=== PATIENT | male | born 1945 | race Caucasian/White ===

== ENCOUNTER 2016-09-29 10:29 | Day surgery (SDC) | payer MEDICARE, OTHER ==
[~2016-09-29] VITALS: Ht 165.1 cm; Wt 79.8 kg
[2016-09-29] VITALS (18 sets, daily range): BP systolic 102–152; BP diastolic 57–91; PULSE 50–58; RESP 10–22; TEMP 97.1–98; O2SAT 90–100; Ht 165.1 cm; Wt 79.8 kg
[~2016-09-29 10:29] MED LIST: ASPI-611 PO; CEFAZOLIN 1 GRAM INJECTION IV ONE; FINA5TAB42 PO; LEVO25TA49 PO; LIDOCAINE 1% (10mg/ml) 2ml SDV INJ ONE; LORA-358 PO; LOSA50TA52 PO; LR 1,000 ML IV SCH; MULT-806 PO; RANI150T7 PO; TAMS0.4C47 PO; TRAZ150T80 PO
--- OUTSIDE RECORDS SUMMARY | 2016-09-29 10:35 | XMS REPORT | Continuity of Care Document ---
Author Author [facility] Organization [facility] Address Unknown Phone Unavailable Allergies Active Description Code Type Severity Reaction Onset Reported/Identified Relationship to Patient Clinical Status Yes No Known Medication Allergies NKMA N/A N/A 03/28/2014 Medications Problems Procedures Results Test Result Range CBC With Platelet and Differential - 08/26/16 08:40 Absolute Basophils 0.05 10*3/uL 0.00- 0.20 Absolute Eosinophils 0.10 10*3/uL 0.00- 0.50 Absolute Lymphocytes 1.86 10*3/uL 0.80- 3.30 Absolute Monocytes 0.65 10*3/uL 0.30- 1.00 Absolute Neutrophils 3.02 10*3/uL 1.90- 7.00 Basophils 1 % 0-2 Eosinophils 2 % 0-4 HCT 46.4 % 42.0-52.0 HGB 15.6 g/dL 14.0-18.0 Immature Granulocytes 0.4 % 0.0-1.0 Lymphocytes 33 % 20-46 MCH 30.9 pg 27.0-32.0 MCHC 33.6 g/dL 32.0-36.0 MCV 91.9 fL 82.0-99.0 Monocytes 11 % 4-11 MPV 10.2 fL 8.8-14.8 Neutrophils 53 % 51-75 Platelet Count 150 K/uL 150-400 RBC 5.05 10*6/uL 4.60-6.20 RDW 12.7 % 11.5-14.5 WBC 5.7 K/uL 4.8-10.8 Comprehensive Metabolic Panel (CMP) - 08/26/16 08:40 Albumin 4.2 g/dL 3.4-4.8 Alkaline Phosphatase 76 U/L 40-150 ALT (SGPT) 22 U/L 0-55 Anion Gap 5 NA 3-20 AST (SGOT) 25 U/L 5-34 Bilirubin Total 0.8 mg/dL 0.2-1.2 BUN 12 mg/dL 8-26 Calcium 9.7 mg/dL 8.4-10.2 Chloride 107 mEq/L 99-111 CO2 29 mEq/L 23-31 Creatinine 1.17 mg/dL 0.72-1.25 Globulin 2.8 g/dL 1.8-4.0 Glucose 74 mg/dL 70-99 Potassium 4.9 mEq/L 3.5-5.2 Protein 7.0 g/dL 6.0-7.6 Sodium 141 mEq/L 135-144 Lipid Panel - 08/26/16 08:40 Cardiac Risk 3.4 0.0-5.7 Cholesterol 187 mg/dL 0-199 HDL Cholesterol 55 mg/dL 40-84 LDL Cholesterol 104 mg/dL 0-130 Triglycerides 140 mg/dL 0-149 VLDL Cholesterol 28 mg/dL 0-28 eGFR - 08/26/16 08:40 eGFR >60 mL/min >60 TSH with Reflex Free T4 - 08/26/16 08:40 TSH with Reflex Free T4 3.09 uIU/mL 0.35- 4.94 Urinalysis with reflex microscopic - 08/26/16 08:48 Appearance Clear NA Bilirubin Negative NA Negative Blood Negative NA Negative Color Yellow NA Glucose, Urine Negative Negative Ketones Negative Negative Leukocyte Esterase Negative NA Negative Nitrites Negative NA Negative pH 6.5 NA 5.0-8.0 Protein Negative Negative Specific [place] 1.013 NA 1.003-1.030 UA Collection type Voided NA Urobilinogen 0.2 mg/dL <1.0 Encounters ACCT No. Visit Date/Time Discharge Status Pt. Type Provider Facility Loc./Unit Complaint [id number] 09/23/2013 14:28:00 09/23/2013 23 :59:59 CLS Outpatient [id number] 05/31/2013 09:26:00 05/31/2013 23 :59:59 CLS Outpatient
--- OUTSIDE RECORDS SUMMARY | 2016-09-29 10:35 | XMS REPORT | Continuity of Care Document ---
Author Author [facility] Organization [facility] Address Unknown Phone Unavailable Support Name Relationship Address Phone LAKESHA PIERSON MD Caregiver [address] [place] [address] [place] [address] Unavailable ALLISON MONTAÑO FACS, MD Caregiver [address] [place] [address] [place] [address] Unavailable PatWILMAN AYON Next Of Kin Unknown [phone] Insurance Providers Guarantor Vinicio Stearns Address [address] [place] [address] [place] [address] Email [email or web address] Payer Medicare Policy Number [id number] Subscriber's Name Vinicio Stearns Relationship 18 Self Payer Other A Insurance Policy Number [id number] Subscriber's Name Vinicio Stearns Relationship 18 Self Group Number [id number] Advance Directives Directive Response Recorded Date/Time Ordered Resuscitation Status Full Code 08/27/16 1:47pm Resuscitation Documents on File No 08/28/16 7:51am DPOA for Healthcare Only No 08/28/16 7:51am Living Will No 08/28/16 7:51am Advanced Directive or Resuscitation Comments PAMPHLET GIVEN 08/28/16 7:51am Problems No problem information available. Medications Current Home Medications Medication Dose Units Route Directions Days Qty Instructions Start Date Aspirin 81 Mg Tablet 81 Mg Oral Daily 05/05/09 Finasteride 5 Mg Tablet 1 Tab Oral Daily 30 08/27/16 Levothyroxine Sodium (Synthroid) 25 Mcg Tablet 2 Tab Oral Daily 08/14/11 Loratadine 10 Mg Tablet 10 Mg Oral As Needed 08/14/11 Losartan Potassium 50 Mg Tablet 0.5 Tab Oral Bedtime 45 08/27/16 Multivitamins (Multivitamin) 1 Tab Tablet 1 Tab Oral Daily Ranitidine Hcl 150 Mg Tablet 1 Tab Oral Bedtime 60 08/27/16 Tamsulosin Hcl 0.4 Mg Cap.er.24h 1 Tab Oral Daily 30 08/27/16 Trazodone Hcl 150 Mg Tablet 0.5 Tab Oral Daily 08/27/16 Past Home Medications Medication Directions Ordered Status Avodart , 05/05/09 Discontinued Multivit , 05/05/09 Discontinued Trazadone , 05/05/09 Discontinued Social History Social History Problem Response Recorded Date/Time Onset Date Status Reason for Hospitalization COLONOSOCPY 08/28/2016 10:42am Not Applicable Not Applicable Chewing Tobacco Status No 08/27/2016 10:59am Not Applicable Not Applicable Hx Substance Use No 08/27/2016 10:59am Not Applicable Not Applicable Hx Alcohol Use No 08/27/2016 10:59am Not Applicable Not Applicable Has the pt used tobacco in the last 12 months No 08/27/2016 10:59am Not Applicable Not Applicable Query Response Start Date Stop Date Smoking Status Former smoker Hospital Discharge Instructions Instructions: Care Instructions: I was in the hospital because (patient own words): "COLONOSCOPY, 5 YEAR CHECK FOR CANCER SCREENING" Discharge Diet: As Tolerated Discharge Activity: Do NOT drive today Follow Up Appointments: Follow up with Dr. Montaño as needed. Pending Lab / Results: Will be notified Patient Instructions: If biopsies performed during colonoscopy, results/recommendations will be mailed in about 2-3 weeks. Expected Signs/Symptoms: None Notify Physician If: Call physician if temperature is GREATER than 101.5, severe abdominal pain or severe rectal bleeding. During Business Hours:: Call [phone] After Business Hours:: Call [phone] (hospital) Pain Management/Treatment: Call Dr. Montaño if increasing abdominal pain Wound/Incision Care: N/A Condition at time of discharge: Good Plan of Care Discharge Date 08/28/16 11:09am Instructions/Education Provided [facility] [place] Surgical Services Prescriptions See Medication Section Functional Status Query Response Date Recorded Ability to complete ADL's impeded by No change August 28, 2016 7:51am Allergies, Adverse Reactions, Alerts Allergen Type Severity Reaction Status Last Updated No Known Drug Intolerances Allergy Unknown Active 08/28/16 Immunizations Query Response on File Recorded Date/Time Hx Influenza Vaccination Y fall 201508/27/16 10:59am Hx Pneumococcal Vaccination Y fall 201508/27/16 10:59am Hx Influenza Vaccination Y fall 201508/27/16 10:59am Hx Tetanus Diptheria Y 05/05/09 05/05/09 6:31pm Vital Signs Acute Vital Signs Vital Response Date/Time Temperature (Fahrenheit) 97.0 deg F (96.8 - 99.1) 08/28/2016 10:54am Temperature (Calculated Celsius) 36.57343 degrees C (36.0 - 37.3) 08/28/2016 10:54am Temperature Source Temporal 08/28/2016 10:54am Pulse Rate (adult) 68 bpm (60 - 100) 08/28/2016 10:54am Respiratory Rate 18 breaths/min (10 - 20) 08/28/2016 10:54am O2 Sat by Pulse Oximetry 98 % (90 - 100) 08/28/2016 10:54am Oxygen Delivery Method Room Air 08/28/2016 10:54am Blood Pressure 136/68 mm Hg 08/28/2016 10:54am Blood Pressure Source Automatic Cuff 08/28/2016 10:54am Height (Feet) 5 feet 08/28/2016 7:36am Height (Inches) 4.50 inches 08/28/2016 7:36am Weight (Kilograms) 79.300 kg 08/28/2016 7:36am Body Mass Index (BMI) 29.6 08/28/2016 7:36am Results No known relevant diagnostic tests, laboratory data and/or discharge summary. Procedures Procedure Status Date Provider(s) Colonoscopy with polypectomy and biopsy Completed 08/28/16 ALLISON MONTAÑO MD, MARIELA, YOUNG Encounters Encounter Location Arrival/Admit Date Discharge/Depart Date Attending Provider Departed [facility] 08/28/16 7:25am 08/28/16 11 :09am ALLISON MONTAÑO FACS, MD
--- NOTE | 2016-09-29 10:54 | ANESPREOP ---
Anesthesia Record Date and Time DATE: 09/29/16 TIME: 10:53 Pre-Op Diagnosis Umbilical hernia Proposed Surgical Procedure UMBILICAL HERNIA REPAIR NPO since: Midnight Allergies: Coded Allergies: No Known Allergies (Unverified , 09/26/16) Ht/Wt/BMI Height: 5 ' 5.00 " Weight: 79.800 kg BMI: 29.3 kg/m2 Vital Signs Date Time Temp Pulse Resp B/P Pulse Ox O2 Delivery O2 Flow Rate FiO2 09/29/16 10:45 98.0 56 14 152/74 95 Room Air Medications Inpatient Medications Current Medications Medications (Trade) Dose Ordered Sig/Noe Start Time Stop Time Status Last Admin Dose Admin Lactated Ringer's (Lactated Ringers) 1,000 ml @ 50 mls/hr Q20H 09/29/16 07:00 Aspirin (Aspirin) 81 Mg Tablet, 81 MG PO DAILY, (Reported) Last Taken: on 09/23/16 Finasteride (Finasteride) 5 Mg Tablet, 1 TAB PO DAILY, (Reported) Levothyroxine Sodium (Synthroid) 25 Mcg Tablet, 2 TAB PO DAILY, (Reported) Loratadine (Loratadine) 10 Mg Tablet, 10 MG PO PRN, (Reported) Losartan Potassium (Losartan Potassium) 50 Mg Tablet, 0.5 TAB PO HS, (Reported) Multivitamins (Multivitamin) 1 Tab Tablet, 1 TAB PO DAILY, (Reported) Ranitidine HCl (Ranitidine HCl) 150 Mg Tablet, 1 TAB PO HS, (Reported) Tamsulosin HCl (Tamsulosin HCl) 0.4 Mg Cap.er.24h, 1 TAB PO DAILY, (Reported) Trazodone HCl (Trazodone HCl) 150 Mg Tablet, 0.5 TAB PO DAILY, (Reported) Currently on Beta Rupali: No Medical/Surgical History Anesthesia PMH: Reports: *Hypertension (TAKES MEDS), Reflux, Thyroid Disease, Denies: *Diabetes, Anesthesia Reactions (NO AIRWAY ISSUES ), Arthritis, Cancer, Clotting Problems, Glaucoma, Hepatitis, Hiatal Hernia, Malignant Hyperthermia, Renal Disease, Sleep Apnea Smoking Status: Former smoker Has pt. smoked today?: No Use Chewing Tobacco?: No Second Hand Exposure: No Substance Use Type: does not use Alcohol Intake: none Past Surgical History Orthopedic Surgeries: No Abdominal Surgeries: Yes - HERNIA-BILATERAL INGUINAL Genitourinary Surgeries: No Cardiac Surgeries: No Endocrine Surgeries: No Reproductive Surgeries: No Neurological Surgeries: No Ear Surgeries: No Nose Surgeries: No Throat Surgeries: No Other Surgeries: Yes - C-SCOPE, REPAIR OF RECTAL FISTULA. LESION REMOVAL SPENCE Anesthesia Adverse Reactions: FOUND none Pertinent Findings EKG Rhythm: Sinus Rhythm Physical Exam Respiratory: Lungs clear Cardiovascular: FOUND Regular rate, rhythm Airway Assessment Mallampati Score: II TMD: 3 Fingerbreadths Overall Assessment: No Airway Concerns ASA: 3 Plan Anesthesia Plan: TIVA, LMA, GETA Discussion Discussed risks/options/alternatives of anesthesia and questions answered. Patient consents. Nursing pain assessment noted. Attestation Statement Prior to the delivery of any anesthetic medication, I examined the patient, developed the plan, obtained the patient's consent and discussed the risk and benefits of the procedure with the patient/guardian. RY OLIVAREZ [employer] Sep 29, 2016 10:54
[2016-09-29 11:03] LABS: ANION GAP 11 MEQ/L (5-15); BUN/CREATININE RATIO 14 RATIO (6-26); CALCIUM 9.4 MG/DL (8.4-10.2); CHLORIDE 108 MEQ/L (98-107); CO2 - CARBON DIOXIDE 28 MEQ/L (22-30); CREATININE 1.1 MG/DL (0.8-1.5); GLOMERULAR FILTRATION RATE 66; GLUCOSE 108 MG/DL (75-110); POTASSIUM 4.3 MEQ/L (3.6-5); SODIUM 147 MEQ/L (134-144)
[2016-09-29] MEDS ORDERED: CEFAZOLIN 1 GRAM INJECTION IV ONE (11:15)
[2016-09-29] MEDS ORDERED: BUPIVACAINE 0.25%/EPI 1:200,000 30ml SDV ONE (12:56)
[2016-09-29] MEDS ORDERED: FENTANYL 100mcg/2ml INJECTION ONE (13:22)
[2016-09-29] MEDS ORDERED: MIDAZOLAM 2mg/2ml INJECTION ONE (13:22)
[2016-09-29] MEDS ORDERED: PROPOFOL 500mg 50 ML IV ONE (13:30)
[2016-09-29] MEDS ORDERED: PROPOFOL 200mg 20 ML IV ONE (13:54)
[2016-09-29] MEDS ORDERED: POLY17PO6 PO (14:31)
[2016-09-29] MEDS: HYDROMORPHONE 2mg/ml INJECTION IV PRN ×3 (14:43→15:05)
[2016-09-29] MEDS ORDERED: ONDANSETRON 4mg/2ml INJECTION IV PRN (14:45)
--- NOTE | 2016-09-29 15:22 | ANESPO ---
Post-Op Note Date 09/29/16 Time: 15:22 Status Pt Participated in Evaluation: Pt participated in person Vital Signs Date Time Temp Pulse Resp B/P Pulse Ox O2 Delivery O2 Flow Rate FiO2 09/29/16 15:15 52 15 126/73 95 Room Air 09/29/16 14:40 2.00 09/29/16 14:18 97.7 Respiratory Function: Airway patent Cardiovascular Function: Regular pulse Pain Level Intensity: 4 Hydration: Taking po fluids Complications during Recovery None apparent Follow-Up Instructions Instructions Per Surgeon YANELIS CARPENTER CRNA Sep 29, 2016 15:22
[2016-09-29] MEDS ORDERED: HYDROCODONE/APAP 5 mg/325 mg TABLET PO PRN (15:30)
--- NOTE | 2016-09-30 09:08 | OPNOTEF ---
DATE OF SERVICE 09/29/2016 SURGEON Alfred Ring MD PREOPERATIVE DIAGNOSIS Symptomatic umbilical hernia. POSTOPERATIVE DIAGNOSIS Symptomatic umbilical hernia. PROCEDURE Umbilical herniorrhaphy with incorporation of mesh. ANESTHESIA TIVA/local BRIEF HISTORY/INDICATIONS Mr. Galan is a 70-year-old gentleman who recently presented to my office as a result of his history for having a component of some periumbilical discomfort. The patient was found have a moderate sized umbilical hernia. As a result of the above indications, it was recommended the patient undergo an elective repair. Patient presents today to undergo this procedure. For completeness please refer to notes included in the patient's chart. DESCRIPTION OF PROCEDURE After informed consent was obtained, patient was brought to the operative suite, placed on the table in supine fashion. Periumbilical region was then prepped and draped in sterile fashion. 0.25% Marcaine with epinephrine was injected circumferentially around the umbilicus. Next, a 3 cm curved infraumbilical incision was then made through the area of analgesia. Dissection was carried down to the deep subcuticular tissues to the underlying fascia. The edges of the fascial defect were then dissected out circumferentially. Base of the umbilicus was dissected off of the hernia sac. The omentum that was within the hernia sac as well as the hernia sac itself was then reduced back through the fascial defect that was on the order of about 1.5 cm in diameter. Preperitoneal dissection was then carried out along the edges of the fascial defect. Next, a 4 cm piece of Ventralex mesh was then brought forth and placed through the fascial defect and oriented appropriately within the preperitoneal space that had been previously dissected out. Tail portions of the mesh were allowed to exit through the fascial defect. Next the fascial defect itself was then closed primarily by placing several simple sutures of 0 PDS suture. Sutures were placed in such a fashion so as to incorporate a small purchase of underlying fascia. Tail portions of the mesh were then transected beneath the level of the fascia. Each suture was then tied sequentially resulting in a nice imbrication of the fascial edges with incorporation of mesh in its preperitoneal location. Next attention was then directed towards closure. The base of the umbilicus was imbricated to underlying fascia. First a small subcuticular purchase of the base umbilicus was obtained followed by a small purchase of fascia just beneath the fascial closure. Deep subcutaneous tissues were then reapproximated in a running fashion with 3-0 Vicryl as well. Skin itself was then closed in a running subcuticular fashion with 4-0 Monocryl. Dermabond was placed overlying the incision. Patient is in the process of awakening from his anesthetic and will be sent back to recovery room once deemed in stable condition. VINNIE
== END 2016-09-29 16:04 | disposition home or self-care (01) ==
LOC: SCU 10:29 → SRG 10:30 → SCU 16:04
PROVIDERS: ATTEND Surgery
DX: K42.9 Umbilical hernia without obstruction or gangrene (principal); E03.9 Hypothyroidism, unspecified; J30.9 Allergic rhinitis, unspecified; I10 Essential (primary) hypertension; N40.0 Benign prostatic hyperplasia without lower urinary tract symptoms; K21.9 Gastro-esophageal reflux disease without esophagitis; Z79.82 Long term (current) use of aspirin; Z79.899 Other long term (current) drug therapy
CPT/HCPCS: 36415; 49585; 80048; A9270; J0690; J1170; J2250; J2704; J3010; J7120